=== PATIENT | female | born 1995 | race Caucasian/White ===

== ENCOUNTER 2017-05-07 23:35 | Emergency (ER) | payer MEDICAID ==
[2017-05-07 23:49] VITALS: BP 118/76
--- NOTE | 2017-05-10 07:25 | UC ---
Progress - Progress Note Progress Note: Urine culture negative, stop bactrim.
== END 2017-05-08 00:11 | disposition left against medical advice (07) ==
LOC: ED 23:35
DX: R30.0 Dysuria (principal); Z53.21 Procedure and treatment not carried out due to patient leaving prior to being seen by health care provider

== ENCOUNTER 2017-05-08 14:31 | Emergency (ER) | payer MEDICAID ==
[2017-05-08 14:48] VITALS: BP 117/76
--- NOTE | 2017-05-08 15:12 | UC ---
Complaint Female HPI - HPI Summary HPI Summary: Pt presents with c/o of urinary symptoms of frequency, urgency, dysuria and vaginal itching, discomfort and thick white discharge. Pt has history of UTI's and vaginal yeast infection - History Of Current Complaint Chief Complaint: UCGU Stated Complaint: URINARY Time Seen by Provider: 05/08/17 14:56 Hx Obtained From: Patient Hx Last Menstrual Period: unknown, implanon ?: No Onset/Duration: Gradual Onset, Lasting Days - 4 days, Still Present Timing: Constant Severity Initially: Mild Severity Currently: Mild Character: Burning Aggravating Factor(s): Urination Associated Signs And Symptoms: Positive: Vaginal Discharge - whtie, thick - Allergies/Home Medications Allergies/Adverse Reactions: Allergies Allergy/AdvReac Type Severity Reaction Status Date / Time Penicillins Allergy Mild Vomiting Unverified 05/08/17 14:48 Codeine Allergy GI Upset Verified 05/08/17 14:48 PMH/Surg Hx/FS Hx/Imm Hx Previously Healthy: Yes - Surgical History Surgical History: Yes Surgery Procedure, Year, and Place: R foot, T & A, - Family History Known Family History: Positive: Cardiac Disease - Social History Occupation: Employed Full-time Lives: With Family Alcohol Use: None Substance Use Type: None Smoking Status (MU): Heavy Every Day Tobacco Smoker Type: Cigarettes Amount Used/How Often: 1 ppd Length of Time of Smoking/Using Tobacco: 4 yrs Have You Smoked in the Last Year: Yes - Immunization History Vaccination Up to Date: Yes Review of Systems Constitutional: Negative Skin: Negative Eyes: Negative ENT: Negative Respiratory: Negative Cardiovascular: Negative Gastrointestinal: Abdominal Pain - low back ache Genitourinary: Dysuria, Frequency, Urgency, Other - vaginal discharge Motor: Negative Neurovascular: Negative Musculoskeletal: Myalgia - low back Neurological: Negative Psychological: Negative All Other Systems Reviewed And Are Negative: Yes Physical Exam Triage Information Reviewed: Yes Appearance: Well-Appearing Vital Signs: Initial Vital Signs Temp 99 F 05/08/17 14:44 Pulse 71 05/08/17 14:44 Resp 16 05/08/17 14:44 BP 117/76 05/08/17 14:44 Pulse Ox 100 05/08/17 14:44 Vital Signs Reviewed: Yes Neck exam: Normal Respiratory Exam: Normal Cardiovascular Exam: Normal Abdominal Exam: Normal Abdomen Description: Positive: Other: - thick white discharge in vaginal canal Musculoskeletal Exam: Normal Neurological Exam: Normal Psychological Exam: Normal Skin Exam: Normal Complaint Female Dx - Differential Dx/Diagnosis Differential Diagnosis/HQI/PQRI: Sexually Transmitted Disease, Urinary Tract Infection, Other - vaginal yeast infection Provider Diagnoses: UTI. vaginal yeast infection. BV? Discharge - Discharge Plan Condition: Stable Disposition: HOME Patient Education Materials: Urinary Tract Infection in Women (ED), Vulvovaginal Candidiasis (ED) Referrals: ELLEN Guerin [Primary Care Provider] - If Needed (Please follow up with your PCP or return to clinic as needed. )
== END 2017-05-08 15:45 | disposition home or self-care (01) ==
LOC: UCCORT 14:31
DX: N39.0 Urinary tract infection, site not specified (principal); N76.0 Acute vaginitis; Z87.440 Personal history of urinary (tract) infections; Z88.5 Allergy status to narcotic agent; Z88.0 Allergy status to penicillin; F17.210 Nicotine dependence, cigarettes, uncomplicated
CPT/HCPCS: 81002; 87086; 87480; 87491; 87510; 87591; 87661; 99212; G0463

== ENCOUNTER 2017-05-15 23:09 | Emergency (ER) | payer MEDICAID, OTHER ==
[2017-05-15 23:15] VITALS: BP 130/90
[2017-05-16] MEDS ORDERED: Ondansetron ODT TAB* 4 MG PO ONE (00:48)
--- NOTE | 2017-05-16 06:49 | ED ---
Therese Kay Rebecca, scribed for Zafar Bautista MD on 05/16/17 at 0055 . Complex/Multi-Sys Presentation - HPI Summary HPI Summary: Pt is a 22 y/o F who presents to ED c/o adverse medication reaction. Pt started Zoloft and Wellbutrin recently and began experiencing side effects 2 days after beginning medications. Has taken Wellbutrin previously but not Zoloft. Pt c/o feeling "shaky" and experiencing diaphoresis, nausea, fatigue and difficulty staying asleep since beginning medications. Sx aggravated and alleviated by nothing. Denies hallucinations, SIs and HIs. Confirms sleeping last night, but not very well. Pt has not called her PCP concerning these issues. - History Of Current Complaint Chief Complaint: EDGeneral Time Seen by Provider: 05/16/17 00:34 Hx Obtained From: Patient Onset/Duration: Still Present Severity Currently: None Location: Negative Aggravating Factor(s): Nothing Alleviating Factor(s): Nothing Associated Signs And Symptoms: Positive: Nausea, Diaphoresis, Other - Fatigue, "shaky," difficulty staying asleep - Allergies/Home Medications Allergies/Adverse Reactions: Allergies Allergy/AdvReac Type Severity Reaction Status Date / Time Penicillins Allergy Mild Vomiting Unverified 05/08/17 14:48 Codeine Allergy GI Upset Verified 05/08/17 14:48 PMH/Surg Hx/FS Hx/Imm Hx Cardiovascular History: Denies: Hx Coronary Artery Disease Psychiatric History: Reports: Hx Anxiety, Hx Depression - Surgical History Surgery Procedure, Year, and Place: R foot, T & A, - Immunization History Date of Tetanus Vaccine: utd Date of Influenza Vaccine: none Infectious Disease History: No Infectious Disease History: Reports: 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 Denies: Traveled Outside the [place] in Last 30 Days - Family History Known Family History: Positive: Cardiac Disease - Social History Alcohol Use: Rare Substance Use Type: Reports: None Smoking Status (MU): Heavy Every Day Tobacco Smoker Type: Cigarettes Amount Used/How Often: 1 ppd Length of Time of Smoking/Using Tobacco: 4 yrs Have You Smoked in the Last Year: Yes Review of Systems Positive: Fatigue, Skin Diaphoresis, Other - "shaky" and difficulty staying asleep Positive: Nausea Positive: Other - NEGATIVE: hallucinations, SIs, HIs All Other Systems Reviewed And Are Negative: Yes Physical Exam - Summary Physical Exam Summary: The patient is well-nourished in no acute distress and in no acute pain. The skin is warm and dry and skin color reflects adequate perfusion. HEENT: The head is normocephalic and atraumatic. The pupils are equal and reactive. The conjunctivae are clear and without drainage. Nares are patent and without drainage. Mouth reveals moist mucous membranes and the throat is without erythema and exudate. The external ears are intact. The ear canals are patent and without drainage. The tympanic membranes are intact. Neck is supple with full range of motion and non-tender. Respiratory: Chest is non-tender. Lungs are clear to auscultation and breath sounds are symmetrical and equal. Cardiovascular: Hear is regular rate and rhythm. There is no murmur or rub auscultated. There is no peripheral edema and pulses are symmetrical and equal. Abdomen: The abdomen is soft and non-tender. There are normal bowel sounds heard in all four quadrants and there is no organomegaly palpated. Musculoskeletal: There is no back pain noted. Extremities are non-tender with full range of motion. There is good capillary refill. Neurological: Patient is alert and oriented to person, place and time. The patient has symmetrical motor strength in all four extremities. Slight tremors at rest. Answers questions appropriately. Psychiatric: The patient has an appropriate affect and does not exhibit any anxiety or depression. Triage Information Reviewed: Yes Vital Signs On Initial Exam: Initial Vitals Temp Pulse Resp BP Pulse Ox 98.8 F 93 16 130/90 100 05/15/17 23:14 05/15/17 23:14 05/15/17 23:14 05/15/17 23:14 05/15/17 23:14 Vital Signs Reviewed: Yes - [place] Coma Scale Coma Scale Total: 15 Diagnostics - Vital Signs Vital Signs Temp Pulse Resp BP Pulse Ox 05/15/17 23:14 98.8 F 93 16 130/90 100 - Laboratory Lab Statement: Any lab studies that have been ordered have been reviewed, and results considered in the medical decision making process. Re-Evaluation - Re-Evaluation First Eval Re-Evaluation Time: 00:47 Comment: States that she does not want anything that will sedate her. Agreed to medication for nausea and advised that she should likely stop the medication and follow up with her PCP in the morning. Complex Multi-Symp Course/Dx Assessment/Plan: Pt is a 22 y/o F who presents to ED c/o adverse medication reaction. Pt started Zoloft and Wellbutrin recently and began experiencing side effects 2 days after beginning medications. Has taken Wellbutrin previously but not Zoloft. Pt c/o feeling "shaky" and experiencing diaphoresis, nausea, fatigue and difficulty staying asleep since beginning medications. Sx aggravated and alleviated by nothing. Denies hallucinations, SIs and HIs. Confirms sleeping last night, but not very well. Pt has not called her PCP concerning these issues. States that she does not want anything that will sedate her. Agreed to medication for nausea and advised that she should likely stop the medication and follow up with her PCP in the morning. I the ED course, pt was given Zofran. She will be D/C to home with Dx of adverse medication reaction and a follow up with her PCP this morning. She undestands and agrees with this plan. Elevated BP noted and advised to f/u with PCP. - Diagnoses Provider Diagnoses: Adverse drug reaction Discharge - Discharge Plan Condition: Stable Disposition: HOME Patient Education Materials: Adverse Drug Reaction (ED) Referrals: Ehsan CotterN [Primary Care Provider] - (Call for a follow up tomorrow. ) Additional Instructions: Recommended to stop medications and follow up with your primary care physician in the morning. The documentation as recorded by the Therese mercado Rebecca accurately reflects the service I personally performed and the decisions made by me, Zafar Bautista MD.
== END 2017-05-16 01:02 | disposition home or self-care (01) ==
LOC: ED 23:09
DX: T43.225A Adverse effect of selective serotonin reuptake inhibitors, initial encounter (principal); T43.295A Adverse effect of other antidepressants, initial encounter; Y92.9 Unspecified place or not applicable; R53.83 Other fatigue; R11.0 Nausea; F17.210 Nicotine dependence, cigarettes, uncomplicated
CPT/HCPCS: 99282; A9270-GY

== ENCOUNTER 2017-08-31 19:36 | Emergency (ER) | payer OTHER ==
--- NOTE | 2017-08-31 20:29 | UC ---
Skin Complaint HPI - HPI Summary HPI Summary: has a lesion below right buttock that is rubbing when she walks-it feels very painful and irritated---concerned it is infected - History of Current Complaint Chief Complaint: UCSkin Time Seen by Provider: 08/31/17 20:10 Stated Complaint: PERSONAL Hx Obtained From: Patient Hx Last Menstrual Period: unknown, implanon ?: No Onset/Duration: Gradual Onset, Lasting Days Timing: Constant Onset Severity: Moderate Current Severity: Moderate Pain Intensity: 7 Pain Scale Used: 0-10 Numeric Location: Discrete Character: Pain, Redness Aggravating Factor(s): Other - movement with walking Alleviating Factor(s): Nothing Associated Signs & Symptoms: Positive: Tenderness - Allergy/Home Medications Allergies/Adverse Reactions: Allergies Allergy/AdvReac Type Severity Reaction Status Date / Time Penicillins Allergy Mild Vomiting Unverified 05/08/17 14:48 Codeine Allergy GI Upset Verified 05/08/17 14:48 Review of Systems Constitutional: Negative Skin: Other - iratated bleeding leasion between right buttock and thigh Eyes: Negative ENT: Negative Respiratory: Negative Cardiovascular: Negative Gastrointestinal: Negative Genitourinary: Negative Motor: Negative Neurovascular: Negative Musculoskeletal: Negative Neurological: Negative Psychological: Negative Is Patient Immunocompromised?: No All Other Systems Reviewed And Are Negative: Yes PMH/Surg Hx/FS Hx/Imm Hx Previously Healthy: Yes - Surgical History Surgical History: Yes Surgery Procedure, Year, and Place: R foot, T & A, - Family History Known Family History: Positive: Cardiac Disease - Social History 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 Negative: Nasal congestion, Nasal drainage, Trismus, Muffled voice, Hoarse voice Dental Exam: Normal Neck exam: Normal Neck: Positive: Supple, Nontender, No Lymphadenopathy Respiratory Exam: Normal Respiratory: Positive: Chest non-tender, No respiratory distress, No accessory muscle use Cardiovascular Exam: Normal Cardiovascular: Positive: RRR, Pulses Normal, Brisk Capillary Refill Musculoskeletal Exam: Normal Musculoskeletal: Positive: Strength Intact, ROM Intact, No Edema Neurological Exam: Normal Neurological: Positive: Alert, Muscle Tone Normal Psychological Exam: Normal Skin Exam: Normal Skin: Positive: Other - irratated bleeding lesion smaller than a pencil eraser Course/Dx - Course Course Of Treatment: dressing for protection and cushion, follow with Dermatology this week - Diagnoses Provider Diagnoses: irrated skin lesion right buttock Discharge - Discharge Plan Condition: Stable Disposition: HOME Patient Education Materials: Molluscum Contagiosum (ED), Atypical Mole (ED) Referrals: Dallin Ulloa MD [Medical Doctor] - 5 Days
[2017-08-31 20:45] VITALS: BP 108/69
== END 2017-08-31 20:47 | disposition home or self-care (01) ==
LOC: UCCORT 19:36
DX: L98.9 Disorder of the skin and subcutaneous tissue, unspecified (principal); Z72.0 Tobacco use
CPT/HCPCS: 99211; G0463

== ENCOUNTER 2017-09-27 11:31 | Emergency (ER) | payer OTHER ==
[2017-09-27 12:02] VITALS: BP 99/58
--- NOTE | 2017-09-27 13:40 | UC ---
FLU HPI - History of Current Complaint Chief Complaint: UCRespiratory Stated Complaint: FEVER HEADACHE COUGH Time Seen by Provider: 09/27/17 13:36 Hx Obtained From: Patient Hx Last Menstrual Period: 09/24/17 ?: No Onset/Duration: Sudden Onset - started last evening with fever/chills/fatigue/ cough Severity Currently: Moderate Associated Signs & Symptoms: Positive: Fever, Cough - Allergy/Home Medications Allergies/Adverse Reactions: Allergies Allergy/AdvReac Type Severity Reaction Status Date / Time Penicillins Allergy Mild Vomiting Unverified 08/31/17 20:38 Codeine Allergy GI Upset Verified 08/31/17 20:38 PMH/Surg Hx/FS Hx/Imm Hx Previously Healthy: Yes - Surgical History Surgical History: Yes Surgery Procedure, Year, and Place: R foot- TWICE, T & A,. D&C - Family History Known Family History: Positive: Cardiac Disease - Social History Occupation: Unemployed Lives: With Family Alcohol Use: None Substance Use Type: None Smoking Status (MU): Heavy Every Day Tobacco Smoker Type: Cigarettes Amount Used/How Often: 1 ppd Length of Time of Smoking/Using Tobacco: 4 yrs Have You Smoked in the Last Year: Yes Household Exposure Type: Cigarettes Cessation Counseling: Patient Advised to Stop - Immunization History Vaccination Up to Date: Yes Review of Systems Constitutional: Fever, Fatigue Skin: Negative Respiratory: Cough Cardiovascular: Negative Gastrointestinal: Negative Neurological: Negative Psychological: Negative All Other Systems Reviewed And Are Negative: Yes Physical Exam Triage Information Reviewed: Yes Appearance: No Pain Distress, Well-Nourished - appears tired Vital Signs: Initial Vital Signs Temp 99.4 F 09/27/17 11:57 Pulse 124 09/27/17 11:57 Resp 18 09/27/17 11:57 BP 99/58 09/27/17 11:57 Pulse Ox 100 09/27/17 11:57 Eyes: Positive: Conjunctiva Clear ENT Exam: Normal Neck exam: Normal Neck: Positive: Supple, Nontender, No Lymphadenopathy Respiratory Exam: Normal Cardiovascular Exam: Normal Neurological Exam: Normal Psychological Exam: Normal Skin Exam: Normal Flu Course/Dx - Differential Dx/Diagnosis Differential Diagnosis/HQI/PQRI: Influenza, Upper Respiratory Infection Provider Diagnoses: influenza A Discharge - Discharge Plan Condition: Stable Disposition: HOME Prescriptions: Oseltamivir CAP* [Tamiflu CAP*] 75 mg PO BID #10 cap Patient Education Materials: Influenza (ED) Referrals: ELLEN Guerin [Primary Care Provider] - 2 Days (if no improvement) Additional Instructions: Rest drink plenty of fluids start Tamiflu today tylenol for fever as directed
== END 2017-09-27 14:22 | disposition home or self-care (01) ==
LOC: UCEAST 11:31
DX: J11.1 Influenza due to unidentified influenza virus with other respiratory manifestations (principal); Z88.5 Allergy status to narcotic agent; Z88.0 Allergy status to penicillin; F17.210 Nicotine dependence, cigarettes, uncomplicated
CPT/HCPCS: 87502; 99212; G0463